=== PATIENT | female | born 2005 | race Caucasian/White ===

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

== ENCOUNTER 2025-05-10 16:56 | Emergency (ER) | payer OTHER, SELFPAY ==
--- NOTE | ~2025-05-10 | XR_ITS ---
HISTORY: rolled injury, pain left ankle. COMPARISON: None TECHNIQUE: 3 views of the left ankle were performed FINDINGS: No acute fracture or dislocation. Anterolateral soft tissue swelling. The ankle mortise is preserved. Bone mineralization is age-appropriate. IMPRESSION: Soft tissue swelling without acute fracture. Reviewed, dictated and finalized at location A.
--- OUTSIDE RECORDS SUMMARY | 2025-05-10 17:02 | XMS_ITS | Clinical Summary ---
Author Organization [facility] Address [address] [place] [address] Phone Care Team Providers Care Head Of History Name Role Phone Abby Hill MD Primary Care Provider [phone] Allergies No known active allergies Medications beclomethasone (QVAR) 40 MCG/ACT Aerosol Solution take 1 Puff by inhalation 2 times daily. Active albuterol (VENTOLIN HFA) 108 (90 Base) MCG/ACT Aerosol Solution take 2 Puffs by inhalation every 4 hours as needed. Active Summer 0.25-35 MG-MCG Tablet Active Active Problems No known active problems Immunizations Immunization Administration Dates Next Due Covid-19, Mrna, Lnp-s, Pf, 3 0 Mcg/0.3 Ml Dose, Jesus-sucrose (Pfizer hebert top) 05/30/2022,05/02/2022 DTAP VACCINE 06/11/2006 DTAP-IPV 12/20/2009 DTAP/HEPB/IPV Vaccine 05/28/2005,03/26/2005,0511/2004 Hepatitis A, Pediatric, Unsp ecified Formulation 12/17/2006,06/11/2006 Hepatitis B Vaccine, Pediatric/adolescent 2004 Hib Vaccine,unspecified Formulation 01/29,05/28/2005,03/26/2005,01/29 Human Papillomavirus (HPV) 9 -valent Vaccine 02/12/2016,04/20/2015 Human Papillomavirus Vaccine (HPV), quadrivalent 02/06/2015 Influenza Vaccine Quadrivalent Nasal 05/26/2012 Influenza Vaccine, Quadrivalent, PF 08/12/2022 Influenza Vaccine,unspecifie d Formulation 05/28/2005 MMR Vaccine 12/20/2009,02/26/2006 Meningococcal MCV4O 08/10/2021,02/12/2016 Pneumococcal Vaccine Peds - 7 Valent ,08/20/2005,05/28/2005,03/26 TDAP Vaccine 02/06/2015 Varicella Vaccine Live 12/20/2009,12/02/2005 Social History Tobacco Use Types Packs/Day Years Used Date Smoking Tobacco: Never Smokeless Tobacco: Never Alcohol Use Standard Drinks/Week Comments No 0 (1 standard drink = 0.6 oz pur e alcohol) Comments No Sex and Gender Information Value Date Recorded Sex Assigned at Not on file Legal Sex Female 9:50 PM CDT Gender Identity Not on file Sexual Orientation Not on file Last Filed Vital Signs Vital Sign Reading Time Taken Comments Blood Pressure 112/60 08/09/2023 11:15 AM PROJECT ENGINEERING MANAGER Pulse 96 08/09/2023 11:15 AM PROJECT ENGINEERING MANAGER Temperature 36.7 C (98.1 F) 08/09/2023 11:15 AM PROJECT ENGINEERING MANAGER Respiratory Rate 18 08/09/2023 11:15 AM PROJECT ENGINEERING MANAGER Oxygen Saturation 96% 08/09/2023 11:15 AM PROJECT ENGINEERING MANAGER Inhaled Oxygen Concentration - - Weight 56.7 kg (125 lb) 08/09/2023 11:15 AM PROJECT ENGINEERING MANAGER Height 152.4 cm (5') 11/25/2018 9:00 AM PROJECT ENGINEERING MANAGER Body Mass Index - - Plan of Treatment Health Maintenance Due Date Last Done Comments Hepatitis C Virus (HCV) Screening 2004 Meningococcal B Immunization (1 of 2 - Standard) 2020 SARS-COV-2 Immunization (3 - season) 2024 05/30/2022, 05/02/2022 DTaP/Tdap/Td Immunization (7 - Td or Tdap) 02/06/2025 02/06/2015, 12/20/2009, 06/11/2006, Additional history exists Influenza Immunization (#1) 05/30/202507/30, 05/26/2012, 05/28/2005 Respiratory Syncytial Virus (RSV) Immunization (Adult) (1 - 1-dose 75+ series) 11/30/2079 Hepatitis B Immunization Completed 005, 03/26/2005, 01/29/2005, Additional history exists Pneumococcal Immunization Combined Aged Out 02/26/2006, 08/20/2005, 05/28/2005, Additional history exists No longer eligible based on patient's age to complete this topic Hepatitis A Immunization Discontinued 12/17/2006, 05/30 Measles Mumps Rubella (MMR) Immunization Discontinued 12/20/2009, 02/26/2006 Polio (IPV) Immunization Discontinued 010, 05/28/2005, 03/26/2005, Additional history exists Varicella Immunization Discontinued 12/20/2009, 2005 Human Papillomavirus (HPV) Immunization Completed 02/12/2016, 04/20/2015, 02/06/2015 Meningococcal Immunization (ACWY) Completed 08/10/2021, 02/12/2016 Rotavirus Immunization Aged Out No lo nger eligible based on patient's age to complete this topic Insurance MEDICAID [place] MEDICAID [place] Care Teams Head Of History Relationship Specialty Start Date End Date Abby Hill MD 4 [facility] [address] [address] PCP - General Pediatrics 06/02/18
--- OUTSIDE RECORDS SUMMARY | 2025-05-10 17:02 | XMS_ITS | Encounter Summary ---
Author Organization [facility] Address [address] [place] [address] Phone Care Team Providers Care Safety Sitter Name Role Phone Abby Hill MD Primary Care Provider [phone] Encounter Details Date Type Department Care Team (Late st Contact Info) Description 08/11/2021 [facility] Ad[facility] [address] [place] [id number] Stephanie Alfred APRN, JIG AND FIXTURE MAKER [address] [facility] [address] [place] [id number] Social History Tobacco Use Types Packs/Day Years Used Date Smoking Tobacco: Never Smokeless Tobacco: Never Alcohol Use Standard Drinks/Week Comments No 0 (1 standard drink = 0.6 oz pur e alcohol) Comments No Sex and Gender Information Value Date Recorded Sex Assigned at Not on file Legal Sex Female 9:50 PM CDT Gender Identity Not on file Sexual Orientation Not on file COVID-19 Exposure Response Date Recorded In the last month, have you been in contact with someone who was confirmed or suspected to have Coronavirus / COVID-19? No / Unsure 07/17/2021 5:56 PM CDT documented as of this encounter Plan of Treatment Not on file documented as of this encounter Visit Diagnoses Not on filedocumented in this encounter Additional Health Concerns Infection Onset Date Last Indicated Resolved Time COVID - 19 08/28/2021 08/28/2021 09/17/2021 12:1 6 AM BRICKLAYER APPRENTICE documented as of this encounter Care Teams Safety Sitter Relationship Specialty Start Date End Date Abby Hill MD 4 [facility] [address] [place] [address] PCP - General Pediatrics 06/02/18 documented as of this encounter
--- OUTSIDE RECORDS SUMMARY | 2025-05-10 17:02 | XMS_ITS | Clinical Summary ---
Author Organization [facility] Address [address] [facility] [place] [address] Care Team Providers Care Phosphoric Acid Supervisor Name Role Phone Abby Hill MD Primary Care Provider Source Comments [facility],non-[facility] Affiliates and Associated Physician Practices is amultiple site organization consisting of ambulatory clinics and hospital sitesin [place], [place], [place] and [place]. This disclosure is being madepursuant to the Care Everywhere program and may not contain all information available regarding this patient. Last updated 18.[facility] Active Problems Problem Noted Date Diagnosed Date Chest pain in patient younger than 17 years Drug overdose Social History Tobacco Use Types Packs/Day Years Used Date Smoking Tobacco: Never Assessed Comments Unknown Sex and Gender Information Value Date Recorded Sex Assigned at Not on file Legal Sex Female 2:55 PM CDT Gender Identity Not on file Sexual Orientation Not on file Plan of Treatment Health Maintenance Due Date Last Done Comments HIV SCREENING 11/30/2019 HPV VACCINE (1 - 3-dose series) 11/30/2019 CHLAMYDIA/GONORRHEA SCREENING 2020 MENINGOCOCCAL (Group B) VACC INE SHARED DECISION-MAKING (1 of 2 - Standard) 2020 HEPATITIS C SCREENING 11/25/2022 DTAP/TDAP/TD VACCINES (1 - Tdap) 11/30/2023 HEPATITIS B VACCINE (1 of 3 - 19+ 3-dose series) 11/30/2023 COVID-19 VACCINE ( - 2023-2 5 season) 2024 DEPRESSION SCREENING 09/29/2024 INFLUENZA VACCINE (#1) 2025 ZOSTER VACCINE (1 of 2) 2054 HIB VACCINE Aged Out No longer eligi ble based on patient's age to complete this topic MENINGOCOCCAL GROUPS A/C/Y/W VACCINE Aged Out No longer eligible b ased on patient's age to complete this topic PNEUMOCOCCAL VACCINE Aged Out No long er eligible based on patient's age to complete this topic Insurance [facility] Care Teams Phosphoric Acid Supervisor Relationship Specialty Start Date End Date Abby Hill MD [address] [id number] PCP - General Pediatrics 06/16/18
[2025-05-10 17:03] VITALS: BP 132/94; PULSE 98; RESP 16; TEMP 37.1; O2SAT 100
--- NOTE | 2025-05-10 17:12 | ED_ITS ---
HPI - Extremity Injury (Lower) General Chief Complaint: Extremity Injury, Lower Stated Complaint: left ankle injury Source: patient Mode of arrival: ambulatory Limitations: no limitations History of Present Illness HPI Narrative: 19 y/o female presented for c/o left ankle pain and swelling after Injury last night. She was intoxicated and attempted a cartwheel, but does not know what happened to cause injury. Took ibuprofen today. Pain is worse when moving the ankle, denies pain without movement. Denies numbness, tingling or weakness. Related Data Home Medications ?Medication ?Instructions ?Recorded ?Confirmed ?Last Taken ?Type No Home Medications 05/10/25 05/10/25 Unknown History Allergies Allergy/AdvReac Type Severity Reaction Status Date / Time No Known Allergies Allergy Unknown Verified 05/10/25 17:07 Review of Systems Review of Systems: CONSTITUTIONAL: Denies body aches, fever, chills EYES: Denies visual changes ENT: Denies rhinorrhea, congestion CARDIOVASCULAR: Denies chest pain, palpitations, or edema. RESPIRATORY: Denies cough or dyspnea. SKIN: Denies rash, itching, or wounds. MUSCULOSKELETAL: reports left ankle pain NEUROLOGIC: Denies headache, numbness, tingling, or weakness. All systems reviewed & are unremarkable except as noted in HPI and below PMFSH Past Medical History Medical History (Updated 05/10/25 @ 17:35 by Kathy Hernández APRN) Sleep disorder ADD (attention deficit disorder) Anxiety and depression Strep pharyngitis Asthma Surgical History Surgical History (Updated 09/13/20 @ 15:39 by Francesca Infante NP) No history of previous surgery Social History Social History (Updated 09/13/20 @ 15:36 by Francesca Infante NP) Tobacco type: e-cigarettes/vaping Alcohol intake: never Substance use: never Living arrangements: with family Occupation/Education: student Gender identity (if verbalized by the patient): Female Comments At time of signature, I have reviewed and agree with nursing past medical, surgical, social and family history unless otherwise noted. Please see nursing chart for further information. There is no relevant family history pertinent to the presenting complaint Exam Narrative: GENERAL: Well-appearing CHEST: Speaks in full sentences. No respiratory distress. HEART: Regular rate and rhythm. Normal and equal peripheral pulses. EXTREMITIES: left lateral ankle swelling, TTP. Foot has normal strength and sensation. Painful and slightly decreased range of motion with ankle flexion/extension/rotation. No open wounds, or obvious deformity; pulse palpable and equal bilaterally, skin warm, dry, pink. Capillary refill less than 3 seconds. SKIN: Warm, dry, no rash. NEURO: Alert and oriented x3. PSYCH: Normal mood and affect Course Course Emergency Course: Patient is aware of diagnosis, understands and agrees to treatment plan. Anticipatory guidance given. Patient agrees to follow-up as directed and is aware of reasons to seek care at the emergency department. Portions of this record may have been created with voice recognition software Level of Care: Express Care Visit Vital Signs Vital signs: Vital Signs Temperature 98.7 F 05/10/25 17:03 Pulse Rate 98 05/10/25 17:03 Respiratory Rate 16 05/10/25 17:03 Blood Pressure 132/94 H 05/10/25 17:03 Pulse Oximetry 100 05/10/25 17:03 Oxygen Delivery Room Air 05/10/25 17:03 Temperature 98.7 F 05/10/25 17:03 Pulse Rate 98 05/10/25 17:03 Respiratory Rate 16 05/10/25 17:03 Blood Pressure 132/94 H 05/10/25 17:03 Pulse Oximetry 100 05/10/25 17:03 Oxygen Delivery Room Air 05/10/25 17:03 Reviewed MDM - Extremity Injury (Lower) MDM Narrative Medical decision making narrative: Discussed physical exam findings an x-ray.GRACIE applied. Advised supportive measures and signs/symptoms to go to the ER. Pt is appropriate for outpt treatment and f/u. Differential Diagnosis Differential diagnosis: Likely ankle sprain and strain and ankle fracture Imaging Data Radiologist's impression: Patient: Izabel Chen : 2005 MR#: [id number] Age: 19 Acct:[id number] Loc: [facility] ADM Date: 05/10/25Attending Dr: Ordering Physician: Kathy Hernández APRN Date of Service: 05/10/25 Procedure(s): XR ankle LT min 3V Accession Number(s): [id number] cc: Kathy Hernández APRN; LENS BLOCK GAUGER PHYSICIAN~ HISTORY: rolled injury, pain left ankle. COMPARISON: None TECHNIQUE: 3 views of the left ankle were performed FINDINGS: No acute fracture or dislocation. Anterolateral soft tissue swelling. The ankle mortise is preserved. Bone mineralization is age-appropriate. IMPRESSION: Soft tissue swelling without acute fracture. Discharge Plan Discharge Clinical Impression: Ankle sprain and strain Patient Disposition: Home Condition: Stable Instructions: Antibiotic Form, Ankle Sprain (ED) Additional Instructions: Rest and elevate the left leg; bear weight as tolerated, avoid excessive walking running or jumping until symptoms are fully resolved Apply ice 15-20 minute intervals several times a day Keep it wrapped with GRACIE or use a soft ankle splint Motrin or Tylenol every 8 hours as needed Follow up with your primary care provider as needed go to the ER for worsening symptoms or concerns Patient Language: Czech Prescriptions: No Action No Home Medications Follow-up/Referrals: PHYSICIAN,LENS BLOCK GAUGER [Primary Care Provider] - Stand Alone Forms: Work/School Release IP Time of Disposition: 17:38
== END 2025-05-10 17:45 | disposition home or self-care (01) ==
PROVIDERS: Emergency Provider Nurse Practitioner Family
DX: S93.402A Sprain of unspecified ligament of left ankle, initial encounter (principal); S96.912A Strain of unspecified muscle and tendon at ankle and foot level, left foot, initial encounter; X58.XXXA Exposure to other specified factors, initial encounter
CPT/HCPCS: 73610; 99213; G0463